=== PATIENT | female | born 1955 | race Two or more races ===

== ENCOUNTER 2018-10-21 17:06 | Inpatient (IN) | payer BC, MEDICAID | END 2018-10-22 16:02 | disposition home or self-care (01) | LOC: OVERFLOW 10-22 01:25 → ER 17:06 → WEST WING 10-22 02:05 ==

== ENCOUNTER 2021-04-26 21:09 | Inpatient (IN) | payer BC ==
[~2021-04-26] VITALS: Ht 160 cm; Wt 87.6 kg
[~2021-04-26 21:09] MED LIST: APIX5TAB OR; ATEN-60 PO; HYDR12.56 PO
[2021-04-27] MEDS ORDERED: fentaNYL CITRATE 100 MCG/2 ML VL IV ONE (02:30)
[2021-04-27] MEDS ORDERED: KETOROLAC TROMETH 30 MG/ML 1ML VIAL IV ONE (02:30)
[2021-04-27] MEDS ORDERED: MORPHINE SULFATE INJECTION 2 MG/ML SYRG IV PRN (04:15)
[2021-04-27] MEDS ORDERED: ONDANSETRON HCL 4 MG/2 ML VIAL IV PRN (04:15)
[2021-04-27] MEDS ORDERED: HYDROcodone-ACET 5/325MG TAB PO PRN (04:15)
[2021-04-27] MEDS ORDERED: NITROGLYCERIN 0.4 MG SL TAB SL PRN (04:15)
[2021-04-27] MEDS ORDERED: ACETAMINOPHEN 325 MG TAB PO PRN (04:15)
[2021-04-27] MEDS ORDERED: hydrALAZINE HCL 20 MG/ML VL IV PRN (04:15)
[2021-04-27] MEDS: SODIUM CHLORIDE 0.9% 1,000 ML IV SCH ×2 (06:03→10:45)
[2021-04-27] MEDS ORDERED: ENOXAPARIN SOD 40 MG/0.4 ML SYRINGE SC SCH (10:00)
[2021-04-27] MEDS: FAMOTIDINE (10MG/ML) 2ML VL IV SCH (10:45)
[2021-04-27] MEDS: MULTIPLE VITAMIN TAB PO SCH (10:45)
[2021-04-27] MEDS: ASCORBIC ACID 500 MG TAB PO SCH ×2 (10:45→22:00)
[2021-04-27] MEDS: ZINC SULFATE 220mg CAP or TAB PO SCH (10:45)
[2021-04-27 14:20] LABS: INR 1.01 (0.9-1.15); Partial Thromboplastin Time 24.4 sec (23.6-33.0)
[2021-04-27] MEDS: MORPHINE SULFATE 4 MG/ML SYR/VIAL IV PRN ×2 (15:15→20:44)
[2021-04-27 16:18] LABS: Basophils # (auto) 0 10 ^3/uL (0-0.2); Basophils % (auto) 0.5 % (0.0-2.0); Eosinophils # (auto) 0.5 10 ^3/uL (0-0.8); Eosinophils % (auto) 6.2 % (0.0-7.0); Hemoglobin 12.7 g/dL (12.2-16.2); Lymphocytes # (auto) 1.6 10 ^3/uL (0.4-5.4); Lymphocytes % (auto) 18.5 % (10.0-50.0); Mean Corpuscular Hemoglobin 32.2 pg (28.0-32.0); Mean Corpuscular Hgb Conc. 33.4 g/dL (32.0-36.0); Mean Corpuscular Volume 96.5 fL (80.0-100.0); Monocytes # (auto) 0.7 10 ^3/uL (0-1.3); Monocytes % (auto) 7.7 % (0.0-12.0); Neutrophils # (auto) 5.7 10 ^3/uL (1.6-8.6); Neutrophils % (auto) 67.1 % (37.0-80.0); Red Blood Cells 3.94 10^6/uL (4.0-5.20); White Blood Cell 8.5 10^3/uL (4.4-10.8)
[2021-04-27 16:29] LABS: Potassium 3.9 mmol/L (3.5-5.1)
[2021-04-27 16:36] LABS: Albumin 3.2 g/dL (3.4-5.0); BUN/Creatinine Ratio 22.8; Bilirubin, Total 0.7 mg/dL (0.2-1.0); Calcium 8.8 mg/dL (8.5-10.1); Total Protein 8.1 g/dL (6.4-8.2)
[2021-04-27] MEDS ORDERED: LISI-716 PO (20:26)
[2021-04-28] VITALS (10 sets, daily range): BP systolic 119–169; BP diastolic 60–87
[2021-04-28] MEDS: SODIUM CHLORIDE 0.9% 1,000 ML IV SCH (03:00)
[2021-04-28] MEDS: MORPHINE SULFATE 4 MG/ML SYR/VIAL IV PRN (03:16)
[2021-04-28 07:10] LABS: Basophils # (auto) 0 10 ^3/uL (0-0.2); Basophils % (auto) 0.4 % (0.0-2.0); Eosinophils # (auto) 0.5 10 ^3/uL (0-0.8); Hematocrit 37.4 % (36.0-46.0); Hemoglobin 12.9 g/dL (12.2-16.2); Lymphocytes # (auto) 1.4 10 ^3/uL (0.4-5.4); Mean Corpuscular Hgb Conc. 34.4 g/dL (32.0-36.0); Mean Corpuscular Volume 95.9 fL (80.0-100.0); Monocytes # (auto) 0.5 10 ^3/uL (0-1.3); Monocytes % (auto) 6.8 % (0.0-12.0); Neutrophils # (auto) 4.5 10 ^3/uL (1.6-8.6); Neutrophils % (auto) 64.8 % (37.0-80.0); Nucleated Red Blood Cells % 0.1 %; Red Blood Cells 3.91 10^6/uL (4.0-5.20); Red Cell Distribution Width 13.5 % (11.8-14.3); White Blood Cell 6.9 10^3/uL (4.4-10.8)
[2021-04-28 07:24] LABS: Albumin 2.8 g/dL (3.4-5.0); Calcium 8.2 mg/dL (8.5-10.1); Potassium 3.6 mmol/L (3.5-5.1)
[2021-04-28 07:32] LABS: Bilirubin, Total 0.8 mg/dL (0.2-1.0); Total Protein 7.6 g/dL (6.4-8.2)
[2021-04-28] MEDS: ZINC SULFATE 220mg CAP or TAB PO SCH (10:20)
[2021-04-28] MEDS: ASCORBIC ACID 500 MG TAB PO SCH ×2 (10:21→21:28)
[2021-04-28] MEDS: MULTIPLE VITAMIN TAB PO SCH (10:21)
[2021-04-28] MEDS: ATENOLOL 25 MG TAB PO SCH (10:21)
[2021-04-28] MEDS: FAMOTIDINE (10MG/ML) 2ML VL IV SCH (10:21)
[2021-04-28] MEDS ORDERED: VANCOMYCIN HCL 1000 MG VL ONE (11:51)
[2021-04-28] MEDS ORDERED: TRANEXAMIC ACID 20 ML ONE (11:53)
[2021-04-28] MEDS ORDERED: BUPIVACAINE W/ EPINEPH 0.25% INJ 50ML MDV ONE (11:53)
[2021-04-28] MEDS ORDERED: KETOROLAC TROMETH 30 MG/ML 1ML VIAL ONE (11:56)
[2021-04-28] MEDS ORDERED: TETRACAINE 1% INJ 2 ML VIAL IJ ONE (12:02)
[2021-04-28] MEDS ORDERED: ceFAZolin 1GM/50ML 100 ML IV ONE (12:06)
[2021-04-28] MEDS ORDERED: MORPHINE SULF(PF) 0.5MG/ML 10ML VIAL ONE (12:30)
[2021-04-28] MEDS ORDERED: MIDAZOLAM HCL 2MG/2ML 2ml VIAL (1mg/ml) ONE (12:30)
[2021-04-28] MEDS ORDERED: fentaNYL CITRATE 100 MCG/2 ML VL ONE (12:30)
[2021-04-28] MEDS ORDERED: PROPOFOL 10 MG/ML 20 ML IV ONE (13:27)
[2021-04-28] MEDS ORDERED: LIDOCAINE 2% (LOCAL ANESTH.) PF 5ml SDV ONE (13:35)
[2021-04-28] MEDS ORDERED: ONDANSETRON HCL 4 MG/2 ML VIAL ONE (13:35)
[2021-04-28] MEDS ORDERED: DexAMETHasone SOD PHOS 10MG/1ML VIAL INJ IV PRN (14:45)
[2021-04-28] MEDS ORDERED: NALBUPHINE HCL 10 MG/1ml INJECTION SUBCUT ONE (14:45)
[2021-04-28] MEDS ORDERED: KETOROLAC TROMETH 30 MG/ML 1ML VIAL IV PRN (14:45)
[2021-04-28] MEDS ORDERED: ONDANSETRON HCL 4 MG/2 ML VIAL IV PRN (14:45)
[2021-04-28] MEDS ORDERED: NALOXONE HCL 0.4 MG/ML VIAL IV PRN (14:45)
[2021-04-28] MEDS ORDERED: HYDROmorphone HCL 2 MG/ML VL IV PRN (14:45)
[2021-04-28] MEDS ORDERED: diphenhdrAMINE HCL 50 MG/1 ML VL IV PRN (14:45)
[2021-04-28] MEDS: LACTATED RINGER'S 1,000 ML IV SCH (16:30)
[2021-04-28] MEDS ORDERED: ceFAZolin 1GM/50ML 50 ML IV ONE (21:21)
[2021-04-28] MEDS: SODIUM CHLOR 0.9% PF (SALINE LOCK) 10ML VIAL/SYR IV SCH (21:21)
[2021-04-28] MEDS: ceFAZolin 2 GM in D5W 5% 100 ML IV SCH (21:21)
[2021-04-29] VITALS: BP 108/62
[2021-04-29 01:00] VITALS: BP 121/68
[2021-04-29 02:00] VITALS: BP 120/67
[2021-04-29 05:00] VITALS: BP 111/61
[2021-04-29] MEDS ORDERED: ceFAZolin 1GM/50ML 50 ML IV ONE (05:41)
[2021-04-29] MEDS: ceFAZolin 2 GM in D5W 5% 100 ML IV SCH ×2 (05:59→14:00)
[2021-04-29] MEDS: SODIUM CHLOR 0.9% PF (SALINE LOCK) 10ML VIAL/SYR IV SCH ×3 (05:59→21:38)
[2021-04-29 06:00] VITALS: BP 121/69
[2021-04-29] MEDS: LACTATED RINGER'S 1,000 ML IV SCH ×3 (06:00→21:37)
[2021-04-29 06:24] LABS: Basophils # (auto) 0 10 ^3/uL (0-0.2); Basophils % (auto) 0.5 % (0.0-2.0); Eosinophils # (auto) 0.2 10 ^3/uL (0-0.8); Hematocrit 34.9 % (36.0-46.0); Hemoglobin 11.7 g/dL (12.2-16.2); Lymphocytes # (auto) 1.5 10 ^3/uL (0.4-5.4); Lymphocytes % (auto) 17.8 % (10.0-50.0); Mean Corpuscular Hemoglobin 32.6 pg (28.0-32.0); Mean Corpuscular Hgb Conc. 33.7 g/dL (32.0-36.0); Mean Corpuscular Volume 96.9 fL (80.0-100.0); Monocytes # (auto) 0.8 10 ^3/uL (0-1.3); Monocytes % (auto) 9.2 % (0.0-12.0); Neutrophils # (auto) 5.8 10 ^3/uL (1.6-8.6); Neutrophils % (auto) 70.5 % (37.0-80.0); Red Cell Distribution Width 13.2 % (11.8-14.3); White Blood Cell 8.3 10^3/uL (4.4-10.8)
[2021-04-29 06:43] LABS: Albumin 2.5 g/dL (3.4-5.0); Calcium 8.3 mg/dL (8.5-10.1); Potassium 4.1 mmol/L (3.5-5.1)
[2021-04-29 06:54] LABS: BUN/Creatinine Ratio 18.8; Bilirubin, Total 0.7 mg/dL (0.2-1.0); Total Protein 7.1 g/dL (6.4-8.2)
[2021-04-29] MEDS ORDERED: SODIUM CHLORIDE 0.9% 500 ML IV ONE (08:30)
[2021-04-29] MEDS ORDERED: ENOXAPARIN SOD 40 MG/0.4 ML SYRINGE SC SCH (10:00)
[2021-04-29] MEDS: MULTIPLE VITAMIN TAB PO SCH (11:29)
[2021-04-29] MEDS: FAMOTIDINE (10MG/ML) 2ML VL IV SCH (11:29)
[2021-04-29] MEDS: ASCORBIC ACID 500 MG TAB PO SCH ×2 (11:29→21:38)
[2021-04-29] MEDS: ZINC SULFATE 220mg CAP or TAB PO SCH (11:29)
[2021-04-29] MEDS: ATENOLOL 25 MG TAB PO SCH (11:32)
[2021-04-29 22:00] VITALS: BP 123/55
[2021-04-29] MEDS ORDERED: APIXABAN 5 MG TAB PO SCH (22:00)
[2021-04-30 05:00] VITALS: BP 130/67
[2021-04-30 05:20] LABS: Hematocrit 33.7 % (36.0-46.0); Hemoglobin 11.5 g/dL (12.2-16.2)
[2021-04-30] MEDS: SODIUM CHLOR 0.9% PF (SALINE LOCK) 10ML VIAL/SYR IV SCH ×3 (05:25→21:15)
[2021-04-30 09:00] VITALS: BP 138/75
[2021-04-30] MEDS: ZINC SULFATE 220mg CAP or TAB PO SCH (09:53)
[2021-04-30] MEDS: ATENOLOL 25 MG TAB PO SCH (09:54)
[2021-04-30] MEDS: ASCORBIC ACID 500 MG TAB PO SCH ×2 (09:54→21:15)
[2021-04-30] MEDS: MULTIPLE VITAMIN TAB PO SCH (09:54)
[2021-04-30 13:00] VITALS: BP 134/71
[2021-04-30 17:00] VITALS: BP 132/78
[2021-04-30 22:00] VITALS: BP 135/67
[2021-05-01 05:00] VITALS: BP 139/74
[2021-05-01] MEDS: SODIUM CHLOR 0.9% PF (SALINE LOCK) 10ML VIAL/SYR IV SCH ×2 (06:42→14:00)
[2021-05-01 07:04] LABS: Hematocrit 34.3 % (36.0-46.0); Hemoglobin 12.1 g/dL (12.2-16.2)
[2021-05-01 09:00] VITALS: BP 148/76
[2021-05-01] MEDS: MULTIPLE VITAMIN TAB PO SCH (09:48)
[2021-05-01] MEDS: ZINC SULFATE 220mg CAP or TAB PO SCH (09:48)
[2021-05-01] MEDS: ATENOLOL 25 MG TAB PO SCH (09:49)
[2021-05-01] MEDS: ASCORBIC ACID 500 MG TAB PO SCH (09:49)
[2021-05-01 13:00] VITALS: BP 122/75
== END 2021-05-01 17:00 | DRG 522 ==
LOC: EDBD 21:09 → ER 21:17 → OVERFLOW 04-27 04:09 → WEST WING 04-28 01:20
PROVIDERS: ADMIT Nurse Practitioner Family; ATTEND Internal Medicine
PROC: 0LMJ0ZZ Reattachment of Right Hip Tendon, Open Approach (ICD-10-PCS; 2021-04-28)
PROC: 0SRR01Z Replacement of Right Hip Joint, Femoral Surface with Metal Synthetic Substitute, Open Approach (ICD-10-PCS; principal; 2021-04-28 12:35)
DX: S72.091A Other fracture of head and neck of right femur, initial encounter for closed fracture (principal); L97.929 Non-pressure chronic ulcer of unspecified part of left lower leg with unspecified severity; K57.90 Diverticulosis of intestine, part unspecified, without perforation or abscess without bleeding; K42.9 Umbilical hernia without obstruction or gangrene; E11.9 Type 2 diabetes mellitus without complications; I10 Essential (primary) hypertension; M19.90 Unspecified osteoarthritis, unspecified site; W18.39XA Other fall on same level, initial encounter; Z20.822 Contact with and (suspected) exposure to COVID-19; Z80.0 Family history of malignant neoplasm of digestive organs; Z86.718 Personal history of other venous thrombosis and embolism; Y93.89 Activity, other specified; Y92.89 Other specified places as the place of occurrence of the external cause; Y99.8 Other external cause status
CPT/HCPCS: 36415; 71045; 72170; 72192; 73502; 80053; 85014; 85018; 85025; 85610; 85730; 86850; 86900; 86901; 87426; 93005; 93306; 93970; 96361; 96374; 96375; 97110; 97116; 97163; 97530; G0378; J0690; J1885; J2001; J2250; J2405; J2704; J3490; J7060